=== PATIENT | male | born 1995 | race African-American/Black ===

== ENCOUNTER 2023-03-18 23:32 | Observation (INO) | payer OTHER ==
[2023-03-18 23:37] VITALS: TEMP 98
--- NOTE | 2023-03-18 23:43 | ED ---
Chest Pain HPI - General Chief Complaint: Chest Pain Stated Complaint: Tightness in chest and back Time Seen by Provider: 03/18/23 23:42 Source: patient, RN notes reviewed, old records reviewed Mode of arrival: ambulatory Limitations: no limitations - History of Present Illness Initial Comments: This is a 27-year-old male to the emergency department for evaluation. Patient presents today for evaluation of chest pain 4-5 days of chest pain left-sided chest pain anterior chest pain to his back. Patient woke up the pain and did not elicit when he is going to bed the night before. Patient states his been persistent not going aorta occasional shortness of breath. No trauma no injuries no swelling of travel show sick contacts no fevers. No cough or congestion currently. Patient has no medical history takes no medications MD Complaint: chest pain -: days(s) (5) Onset: during rest, during exertion Pain Location: left chest Severity scale (1-10): 5 Quality: tightness, sharp Consistency: constant Improves With: nothing Worsens With: nothing Anginal Symptoms: dyspnea Other Symptoms: cough Treatments Prior to Arrival: none - Related Data Home Medications Medication Instructions Recorded Confirmed No Known Home Medications 03/19/23 03/19/23 Allergies Allergy/AdvReac Type Severity Reaction Status Date / Time No Known Allergies Allergy Verified 03/19/23 07:22 Review of Systems ROS Statement: Those systems with pertinent positive or pertinent negative responses have been documented in the HPI. ROS Other: All systems not noted in ROS Statement are negative. EKG Findings - EKG Comments: EKG Findings:: EKG is bradycardia 55 QRS 117 QTc 443. Concern for atrial fibrillation - EKG Results: EKG: interpreted by ERMD EKG shows: bradycardia Past Medical History Past Medical History: No Reported History Additional Past Medical History / Comment(s): BACK INJURY History of Any Multi-Drug Resistant Organisms: None Reported Past Surgical History: No Surgical Hx Reported Additional Past Surgical History / Comment(s): HEART SURGERY AN . medical problem - chronic back pain Past Alcohol Use History: Occasional Past Drug Use History: Marijuana General Exam Limitations: no limitations General appearance: alert, in no apparent distress Head exam: Present: atraumatic, normocephalic, normal inspection Eye exam: Present: normal appearance, PERRL, EOMI. Absent: scleral icterus, conjunctival injection, periorbital swelling ENT exam: Present: normal exam, mucous membranes moist Neck exam: Present: normal inspection. Absent: tenderness, meningismus, lymphadenopathy Respiratory exam: Present: normal lung sounds bilaterally. Absent: respiratory distress, wheezes, rales, rhonchi, stridor Cardiovascular Exam: Present: regular rate, normal rhythm, normal heart sounds. Absent: systolic murmur, diastolic murmur, rubs, gallop, clicks GI/Abdominal exam: Present: soft, normal bowel sounds. Absent: distended, tenderness, guarding, rebound, rigid Extremities exam: Present: normal inspection, full ROM, normal capillary refill. Absent: tenderness, pedal edema, joint swelling, calf tenderness Back exam: Present: normal inspection Neurological exam: Present: alert, oriented X3, CN II-XII intact Psychiatric exam: Present: normal affect, normal mood Skin exam: Present: warm, dry, intact, normal color. Absent: rash Course Vital Signs 03/18/23 03/19/23 03/19/23 23:33 00:00 00:14 Temperature 98.0 F Pulse Rate 60 56 L Pulse Rate [ 58 L Loom Checker ] Respiratory 18 19 Rate Blood Pressure 129/70 146/86 O2 Sat by Pulse 98 97 Oximetry 03/19/23 03/19/23 03/19/23 01:00 02:00 05:52 Temperature Pulse Rate 54 L 56 L 53 L Pulse Rate [ Loom Checker ] Respiratory 20 20 18 Rate Blood Pressure 125/77 123/71 126/82 O2 Sat by Pulse 98 98 99 Oximetry 03/19/23 03/19/23 03/19/23 07:16 11:26 14:59 Temperature Pulse Rate 61 51 L 62 Pulse Rate [ Loom Checker ] Respiratory 15 17 15 Rate Blood Pressure 111/68 139/90 O2 Sat by Pulse 96 100 94 L Oximetry 03/19/23 16:42 Temperature Pulse Rate 61 Pulse Rate [ Loom Checker ] Respiratory 15 Rate Blood Pressure 136/85 O2 Sat by Pulse 98 Oximetry - Reevaluation(s) Reevaluation #1: 03/19/23 00:33 Medical records reviewed Reevaluation #2: 03/19/23 00:33 Patient symptoms relatively unchanged Reevaluation #3: Patient informed results and questions answered Studies Chest x-ray interpreted by me is negative for acute disease Reevaluation #4: 03/18/23 23:42 Was pt. sent in by a medical professional or institution ([facility], [facility], urgent care, hospital, or shelter...) When possible be specific @ -no Did you speak to anyone other than the patient for history (EMS, parent, family, police, friend...)? What history was obtained from this source @ -no Did you review nursing and triage notes (agree or disagree)? Why? @ -agree Are old charts reviewed (outside hosp., previous admission, EMS record, old EKG, old radiological studies, urgent care reports/EKG's, shelter records)? Report findings @ -yes Differential Diagnosis (chest pain, altered mental status, abdominal pain women, abdominal pain men, vaginal bleeding, weakness, fever, dyspnea, syncope, headache, dizziness, GI bleed, back pain, seizure, CVA, palpatations, mental health, musculoskeletal)? @ -prior EKG interpreted by me (3pts min.). @ -yes X-rays interpreted by me (1pt min.). @ -yes CT interpreted by me (1pt min.). @ -no U/S interpreted by me (1pt. min.). @ -no What testing was considered but not performed or refused? (CT, X-rays, U/S, lab s)? Why? @ -none What meds were considered but not given or refused? Why? @ -none Did you discuss the management of the patient with other professionals (professionals i.e. [facility], [facility], lab, RT, psych nurse, case management social worker, plumber maintenance, teacher, home school liaison officer, case work aide)? Give summary @ -no Was smoking cessation discussed for >3mins.? @ -no Was critical care preformed (if so, how long)? @ -no Were there social determinants of health that impacted care today? How? (Homelessness, low income, unemployed, alcoholism, drug addiction, transportation, low edu. Level, literacy, decrease access to med. care, skilled nursing, rehab)? @ -none Was there de-escalation of care discussed even if they declined (Discuss DNR or withdrawal of care, Hospice)? DNR status @ -no What co-morbidities impacted this encounter? (DM, HTN, Smoking, COPD, CAD, Cancer, CVA, ARF, Chemo, Hep., AIDS, mental health diagnosis, sleep apnea, morbid obesity)? @ -none Was patient admitted / discharged? Hospital course, mention meds given and route, prescriptions, significant lab abnormalities, going to OR and other pertinent info. @ - 27 male to the emergency department for evaluation of chest pain. Patient found to be bradycardic possible arrhythmia or atrial fibrillation. Patient be admitted for cardiology evaluation management Admitted Undiagnosed new problem with uncertain prognosis? @ -no Drug Therapy requiring intensive monitoring for toxicity (Heparin, Nitro, Insulin, Cardizem)? @ -no Were any procedures done? @ -no Diagnosis/symptom? @ -Bradycardia, dizziness, chest pain Acute, or Chronic, or Acute on Chronic? @ -Acute Uncomplicated (without systemic symptoms) or Complicated (systemic symptoms)? @ -Complicated Side effects of treatment? @ -no Exacerbation, Progression, or Severe Exacerbation? @ -exacerbation Poses a threat to life or bodily function? How? (Chest pain, [place], [place], pneumonia, PE, COPD, DKA, ARF, appy, cholecystitis, CVA, Diverticulitis, Homicidal, Suicidal, threat to staff... and all critical care pts) @ -yes Reevaluation #5: 03/18/23 23:42 Differential Chest Pain: Stable Angina, Unstable Angina, STEMI, NSTEMI Aortic Dissection, Pneumothorax, Musculoskeletal, Esophageal Spasm GERD, Cholecystitis, Pancreatitis, Zoster, this is not meant to be an all-inclusive list. - Consultations Consultation #1: Spoke with sundar who agrees to admit this patient Chest Pain MDM - MDM 27 male in for chest pain, patient be admitted for an bradycardia, possible arrhythmia with bradycardia or underlying atrial fibrillation Disposition Clinical Impression: Chest pain, Atrial fibrillation, New onset atrial fibrillation, Bradycardia Disposition: ADMITTED IP TO THIS HOSP Condition: Good Is patient prescribed a controlled substance at d/c from ED?: No Time of Disposition: 02:20
[2023-03-19] MEDS ORDERED: SODIUM CHLORIDE 0.9% 500 ML 500 ML IV STA (00:31)
[2023-03-19] MEDS ORDERED: KETOROLAC 15 MG/ML 1 ML VIAL IVP STA (00:31)
[2023-03-19 00:50] LABS: Basophils % (A) 0 %; Eosinophils # (A) 0.2 k/uL (0-0.7); Eosinophils % (A) 3 %; HCT 40.5 % (39.0-53.0); HGB 13.4 gm/dL (13.0-17.5); Lymphocytes # (A) 2.5 k/uL (1.0-4.8); Lymphocytes % (A) 38 %; MCHC 33.2 g/dL (31.0-37.0); MCV 93.3 fL (80.0-100.0); Monocytes # (A) 0.4 k/uL (0-1.0); Monocytes % (A) 7 %; Neutrophils # (A) 3.4 k/uL (1.3-7.7); Neutrophils % (A) 51 %; Platelet Count 115 k/uL (150-450); RBC 4.34 m/uL (4.30-5.90); RDW 13.7 % (11.5-15.5); WBC 6.6 k/uL (3.8-10.6)
[2023-03-19 01:01] LABS: ALT 25 U/L (4-49); AST 30 U/L (17-59); African American GFR (CKD) >90 (>60 ml/min/1.73 sqM); Albumin 3.5 g/dL (3.5-5.0); Alkaline Phosphatase 48 U/L (38-126); Anion Gap 4 mmol/L; Blood Urea Nitrogen 16 mg/dL (9-20); Calcium 8.4 mg/dL (8.4-10.2); Carbon Dioxide 25 mmol/L (22-30); Chloride 109 mmol/L (98-107); Glucose 115 mg/dL (74-99); Lipase 106 U/L (23-300); Magnesium 1.9 mg/dL (1.6-2.3); Non-African American GFR(CKD) >90 (>60 ml/min/1.73 sqM); Potassium 3.7 mmol/L (3.5-5.1); Sodium 138 mmol/L (137-145); Total Bilirubin 0.3 mg/dL (0.2-1.3); Total Protein 6.3 g/dL (6.3-8.2)
[2023-03-19 01:10] LABS: NT-Pro-B-Type Natriuretic Pept 34 pg/mL
[2023-03-19 01:15] LABS: INR 1.1 (<1.2); Prothrombin Time 11.3 sec (9.0-12.0)
--- NOTE | 2023-03-19 01:50 | XR ---
EXAM: XR Chest, 2 Views CLINICAL HISTORY: ITS.REASON XR Reason: Chest Pain TECHNIQUE: Frontal and lateral views of the chest. COMPARISON: No relevant prior studies available. FINDINGS: Lungs: No consolidation or mass. Pleural space: No effusion. Heart: No cardiomegaly. Bones/joints: No acute findings. IMPRESSION: No acute cardiopulmonary process.
[2023-03-19] MEDS ORDERED: KETOROLAC 15 MG/ML 1 ML VIAL IVP PRN (02:17)
[2023-03-19] MEDS ORDERED: NALOXONE 0.4 MG/ML 1 ML VIAL IV PRN (02:17)
[2023-03-19] MEDS ORDERED: ONDANSETRON 4 MG/2 ML VIAL IVP PRN (02:17)
[2023-03-19] MEDS ORDERED: ASPIRIN 81 MG PO STA (02:20)
[2023-03-19] MEDS ORDERED: SODIUM CHLORIDE 0.9% 1,000 ML IV SCH (02:30)
--- NOTE | 2023-03-19 05:37 | P.HPIM ---
History of Present Illness H&P Date: 03/19/23 Chief Complaint: Chest pain 27-year-old male with no significant past medical history Patient coming in with 4 day history of chest tightness 5 out of 10 in severity with inability to do his daily activities. 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 He denies any sports related injury or any unusual activity prior to this denies any trauma or falls he denies any fevers or chills denies any coughing or upper respiratory infection symptoms denies any similar symptoms in the past he denies any sudden cardiac in his family. He reports feeling drained no energy and cannot do anything he was supposed to be catering over the weekend and he had to cancel that as the discomfort increases during exertion. He denies any tobacco smoking admits that some marijuana and occasional alcohol review of systems Pertinent positives as noted in HPI. All other systems were reviewed and are negative on exam Constitutional: No acute distress, conversant, pleasant Eyes: Anicteric sclerae, moist conjunctiva, Pupils equal round reactive to light ENMT: NC/AT Oropharynx clear, no erythema, or exudates Neck: Supple, no masses, or JVD No carotid bruits No thyromegaly Lungs: Clear to auscultation Clear to percussion Normal respiratory effort, no accessory muscle use Cardiovascular: Heart irregular in rate and rhythm, No murmurs, gallops, or rubs No peripheral edema Abdominal: Soft Nontender, no guarding, rebound or rigidity Abdomen moving with respiration Normoactive bowel sounds No hepatomegaly, No splenomegaly No palpable mass No abdominal wall hernia noted Skin: Normal temperature, tone, texture, turgor No induration No subcutaneous nodules No rash, lesions No ulcers Extremities: No digital cyanosis No clubbing Pedal pulses intact and symmetrical Radial pulses intact and symmetrical No calf tenderness Psychiatric: Alert and oriented to person, place and time Appropriate affect fair judgement Neuro Muscles Strength 5/5 in all 4 extremities Sensation to light touch grossly present throughout Cranial nerves II-XII grossly intact Lymphatics: no palpable cervical or supraclavicular lymph nodes Past Medical History Past Medical History: No Reported History Additional Past Medical History / Comment(s): BACK INJURY History of Any Multi-Drug Resistant Organisms: None Reported Past Surgical History: No Surgical Hx Reported Additional Past Surgical History / Comment(s): HEART SURGERY AN . medical problem - chronic back pain Past Alcohol Use History: Occasional Past Drug Use History: Marijuana Medications and Allergies Home Medications Medication Instructions Recorded Confirmed Type Marijuana Tablets 1 tab PO DAILY PRN 12/02/14 06/28/15 History HYDROcodone/APAP 5-325MG [[place] 5] 1 each PO Q6HR PRN 06/28/15 06/28/15 History Allergies Allergy/AdvReac Type Severity Reaction Status Date / Time No Known Allergies Allergy Verified 03/18/23 23:37 Physical Exam Vitals: Vital Signs Temp Pulse Pulse Resp BP Pulse Ox 03/19/23 02:00 56 L 20 123/71 98 03/19/23 01:00 54 L 20 125/77 98 03/19/23 00:14 58 L 03/19/23 00:00 56 L 19 146/86 97 03/18/23 23:33 98.0 F 60 18 129/70 98 Intake and Output 03/18/23 03/18/23 03/19/23 14:59 22:59 06:59 Other: Weight 83.915 kg Results CBC & Chem 7: 03/19/23 00:39 03/19/23 00:39 Labs: Abnormal Lab Results - Last 24 Hours (Table) 03/19/23 03/19/23 Range/Units 00:39 00:39 Plt Count 115 L (150-450) k/uL Chloride 109 H (98-107) mmol/L Glucose 115 H (74-99) mg/dL Assessment and Plan Assessment: 27-year-old male with no prescription can past medical history coming in for chest tightness I discussed the case with the ED doctor and I accepted the admission for chest pain with underlying new onset A. fib or cardiac workup stated length of stay more than 2 midnights A. fib with slow ventricular response EKG showing atrial fibrillation with slow ventricular response. With ectopic P waves Troponins negative, proBNP within normal limits TSH 0.746 D-dimer negative Magnesium 1.9, potassium 3.7 both unremarkable Renal function unremarkable Bun16 creatinine 1.0 to Check echocardiogram Cardiology consult zigzag elastic attacher Monitor vital signs White count 6.6 unremarkable hemoglobin 13.4 unremarkable Full code DVT prophylaxis heparin subcu 3 times a day
[2023-03-19] MEDS ORDERED: ASPIRIN 325 MG TAB PO SCH (09:00)
--- NOTE | 2023-03-19 12:42 | P.CRDCN ---
History of Present Illness History of present illness: HISTORY OF PRESENT ILLNESS: This is a 27-year-old male with no significant past medical history. 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 We have been asked to see the patient in consultation for atrial fibrillation. Patient examined at the bedside in the emergency room. There are multiple family members present. The patient states he presented to the hospital for chief complaint of chest pain. He states the pain is on the left side of his chest and goes into his back. He states that yesterday he could not lift up his left arm due to the pain. He states the pain was worse with movement. At the time of examination, he denies chest pain or pressure. 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 EKG was interpreted as atrial fibrillation by the computer. However upon review of EKG there is no evidence of atrial fibrillation. EKG reveals sinus mechanism. * EKG reveals sinus mechanism with no signs of acute ischemia. No evidence of atrial fibrillation. * Chest xray negative for acute process * Laboratory data: WBC 6.6. Hemoglobin 13.4. Platelet count 115. D-dimer 0.32. Sodium 138. Potassium 3.7. BUN 16. Creatinine 1.02. Troponin negative 2. TSH 0.746. * Current home cardiac medications include none REVIEW OF SYSTEMS: At the time of my exam: CONSTITUTIONAL: Denies fever or chills. HEENT: Denies blurred vision, vision changes, or eye pain. Denies hemoptysis CARDIOVASCULAR: Denies chest pain. Denies orthopnea. Denies PND. Denies palpitations RESPIRATORY: Denies shortness of breath. GASTROINTESTINAL: Denies abdominal pain. Denies nausea or vomiting. HEMATOLOGIC: Denies bleeding disorders. GENITOURINARY: Denies any blood in urine. SKIN: Denies pruitis. Denies rash. PHYSICAL EXAM: VITAL SIGNS: Reviewed. GENERAL: Well-developed in no acute distress. HEENT: Head is normocephalic. Pupils are equal, round. Sclerae anicteric. Mucous membranes of the mouth are moist. Neck supple. No JVD or thyromegaly LUNGS: Respirations even and unlabored. Lungs essentially clear to auscultation bilaterally. HEART: Regular rate and rhythm. S1 and S2 heard. ABDOMEN: Soft. Nondistended. Nontender. EXTREMITIES: Normal range of motion. No clubbing or cyanosis. Peripheral pulses intact. No lower extremity edema NEUROLOGIC: Awake and alert. Oriented x 3. ASSESSMENT: Chest pain, troponins negative 2, atypical, reproducible with movement Atrial fibrillation, ruled out, EKG reveals sinus mechanism Marijuana use PLAN: An acute coronary and has been ruled out Patient may be discharged home today from a cardiac standpoint and follow up in the office Will consider outpatient stress testing at that time Recommend abstinence from alcohol and marijuana We will sign off. Please reconsult if needed. Nurse practitioner note has been reviewed by physician. Signing provider agrees with the documented findings, assessment, and plan of care. Past Medical History Past Medical History: No Reported History Additional Past Medical History / Comment(s): BACK INJURY History of Any Multi-Drug Resistant Organisms: None Reported Past Surgical History: No Surgical Hx Reported Additional Past Surgical History / Comment(s): HEART SURGERY AN INFANT. medical problem - chronic back pain Past Alcohol Use History: Occasional Past Drug Use History: Marijuana Medications and Allergies Home Medications Medication Instructions Recorded Confirmed Type No Known Home Medications 03/19/23 03/19/23 History Allergies Allergy/AdvReac Type Severity Reaction Status Date / Time No Known Allergies Allergy Verified 03/19/23 07:22 Physical Exam Vitals: Vital Signs Temp Pulse Pulse Resp BP Pulse Ox 03/19/23 07:16 61 15 111/68 96 03/19/23 05:52 53 L 18 126/82 99 03/19/23 02:00 56 L 20 123/71 98 03/19/23 01:00 54 L 20 125/77 98 03/19/23 00:14 58 L 03/19/23 00:00 56 L 19 146/86 97 03/18/23 23:33 98.0 F 60 18 129/70 98 Intake and Output 03/18/23 03/19/23 03/19/23 22:59 06:59 14:59 Other: Weight 83.915 kg Results 03/19/23 00:39 03/19/23 00:39 Cardiac Enzymes 03/19/23 03/19/23 Range/Units 00:39 00:39 AST 30 (17-59) U/L Troponin I <0.012 (0.000-0.034) ng/mL Coagulation 03/19/23 Range/Units 00:36 PT 11.3 (9.0-12.0) sec APTT 27.0 (22.0-30.0) sec CBC 03/19/23 Range/Units 00:39 WBC 6.6 (3.8-10.6) k/uL RBC 4.34 (4.30-5.90) m/uL Hgb 13.4 (13.0-17.5) gm/dL Hct 40.5 (39.0-53.0) % Plt Count 115 L (150-450) k/uL Comprehensive Metabolic Panel 03/19/23 Range/Units 00:39 Sodium 138 (137-145) mmol/L Potassium 3.7 (3.5-5.1) mmol/L Chloride 109 H (98-107) mmol/L Carbon Dioxide 25 (22-30) mmol/L BUN 16 (9-20) mg/dL Creatinine 1.02 (0.66-1.25) mg/dL Glucose 115 H (74-99) mg/dL Calcium 8.4 (8.4-10.2) mg/dL AST 30 (17-59) U/L ALT 25 (4-49) U/L Alkaline Phosphatase 48 (38-126) U/L Total Protein 6.3 (6.3-8.2) g/dL Albumin 3.5 (3.5-5.0) g/dL Current Medications Generic Name Dose Route Start Last Admin Trade Name Freq PRN Reason Stop Dose Admin Aspirin 325 mg 03/19/23 09:00 03/19/23 10:04 Aspirin 325 Mg Tab PO 325 mg DAILY BEBA Administration Sodium Chloride 1,000 mls @ 130 mls/hr 03/19/23 02:30 03/19/23 02:51 Saline 0.9% IV 130 mls/hr .[id number] BEBA Administration Ketorolac Tromethamine 15 mg 03/19/23 02:17 03/19/23 06:28 Ketorolac 15 Mg/Ml 1 Ml Vial IVP 03/22/23 02:18 15 mg Q6HR PRN Administration Moderate Pain (Scale 4 to 6) Naloxone HCl 0.2 mg 03/19/23 02:17 Naloxone 0.4 Mg/Ml 1 Ml Vial IV Q2M PRN Opioid Reversal Ondansetron HCl 4 mg 03/19/23 02:17 Ondansetron 4 Mg/2 Ml Vial IVP Q8HR PRN Nausea And Vomiting Intake and Output 03/18/23 03/19/23 03/19/23 22:59 06:59 14:59 Other: Weight 83.915 kg 03/19/23 00:39 03/19/23 00:39
[2023-03-19 15:00] VITALS: RESP 15
--- NOTE | 2023-03-19 16:39 | P.DS ---
Providers Date of admission: 03/19/23 02:17 Expected date of discharge: 03/19/23 Attending physician: Kristi Santiago MD Primary care physician: Stated None Hospital Course: Chest pain, noncardiac Sinus bradycardia with frequent PACs 27-year-old man with a history of PFO as a child presented for chest pain. Patient said he did a lot of heavy lifting at work and felt like he had musculoskeletal pain, however, is in the hospital a concern that it may not be purely muscular skeletal nature. In the emergency room, patient was noted to be afebrile, 111/68, heart rate 61, 96% on room air. CBC showed thrombocytopenia to 115, otherwise unremarkable. Basic metabolic panel is unremarkable. Liver function tests are unremarkable. TSH was 0.746. Troponins less than 0.012. Repeat troponin is less than 0.012. Coags were unremarkable. D-dimer was 0.32. Lipase was 106. BNP was 34. EKG shows sinus bradycardia with frequent PACs. Case is discussed with emergency room provider incision was made to admit the patient to observation given bradycardia. Patient's mother noted the patient developed down into the 30s several times while sleeping, but remained asymptomatic. He was seen by cardiology and cleared from their perspective. We did order an echocardiogram to rule out structural heart disease, patient was discharged prior to the results, but will be notified of the result after the echo is read. He'll follow up with primary care physician as well as cardiology on discharge. Gen: awake, alert HEENT: normocephalic, atraumatic, good hearing acuity, moist mucous membranes Resp: good air exchange, breathing comfortably with no accessory muscle use CVS: good distal perfusion x 4, GI: soft, NTTP, ND : no SPT, no CVAT, rivas catheter not present MSK: no pitting edema, no clubbing Neuro: non-focal, moving all extremities Psych: cooperative, euthymic mood Patient Condition at Discharge: Good Plan - Discharge Summary New Discharge Prescriptions: No Action No Known Home Medications Discharge Medication List No Known Home Medications 03/19/23 [History] Follow up Appointment(s)/Referral(s): Jaelyn Mccollum MD [STAFF PHYSICIAN] - 1 Week (Office will call you with an appointment. ) None,Stated [Primary Care Provider] - 1-2 days Discharge Disposition: HOME SELF-CARE
[2023-03-19 16:45] VITALS: BP 136/85; PULSE 61
--- NOTE | 2023-03-19 17:42 | CA ---
Transthoracic Echo Report Name: Peng Aldana Age: 27 Gender: M : 1995 Exam Date: 03/19/2023 14:25 Exam Location: [facility] Ht (in): 70 Wt (lb): 185 Ordering Physician: Mary Torres MD Attending/Referring Phys: Membership Manager Jaziel Guevara Procedure CPT: Indications: PFO, history of Cardiac Hx: Technical Quality: Good Contrast 1: Total Dose (mL): Contrast 2: Total Dose (mL): MEASUREMENTS (Male / Female) Normal Values 2D ECHO LV Diastolic Diameter PLAX 3.2 cm 4.2 - 5.9 / 3.9 - 5.3 cm LV Systolic Diameter PLAX 3.5 cm IVS Diastolic Thickness 1.3 cm 0.6 - 1.0 / 0.6 - 0.9 cm LVPW Diastolic Thickness 3.1 cm 0.6 - 1.0 / 0.6 - 0.9 cm LV Relative Wall Thickness 1.4 RV Internal Dim ED PLAX 2.8 cm LVOT Diameter 2.0 cm Aortic Root Diameter 2.9 cm LA Systolic Diameter LX 2.9 cm 3.0 - 4.0 / 2.7 - 3.8 cm LV Diastolic Volume MOD BP 92.3 cm??? 67 - 155 / 56 - 104 cm??? LV Systolic Volume MOD BP 33.8 cm??? - 58 / 19 - 49 cm??? LV Ejection Fraction MOD BP 63.4 % >= 55 % LV Cardiac Index MOD BP 1570.8 cm???/min???m??? LV Diastolic Volume MOD 4C 72.6 cm??? LV Systolic Volume MOD 4C 38.3 cm??? LV Ejection Fraction MOD 4C 47.2 % LV Cardiac Index MOD 4C 918.8 cm???/min???m??? LV Diastolic Length 4C 8.2 cm LV Systolic Length 4C 7.4 cm LV Diastolic Volume MOD 2C 110.0 cm??? LV Systolic Volume MOD 2C 30.3 cm??? LV Ejection Fraction MOD 2C 72.5 % LV Cardiac Index MOD 2C 2141.1 cm???/min???m??? LV Diastolic Length 2C 8.8 cm LV Systolic Length 2C 7.4 cm LA Volume 60.0 cm??? 18 - 58 / 22 - 52 cm??? Ascending Aorta Diameter 2.5 cm DOPPLER AV Peak Velocity 163.3 cm/s AV Peak Gradient 10.7 mmHg LVOT Peak Velocity 100.3 cm/s LVOT Peak Gradient 4.0 mmHg AV Area Cont Eq pk 2.0 cm??? MV Peak Velocity 119.4 cm/s MV Peak Gradient 5.7 mmHg MV Mean Velocity 52.9 cm/s MV Mean Gradient 1.5 mmHg MV Velocity Time Integral 44.7 cm MR Peak Velocity 328.9 cm/s MR Peak Gradient 43.3 mmHg Mitral E Point Velocity 89.6 cm/s Mitral A Point Velocity 42.7 cm/s Mitral E to A Ratio 2.1 MV Deceleration Time 245.4 ms MV E' Velocity 10.9 cm/s Mitral E to MV E' Ratio 8.2 TR Peak Velocity 271.5 cm/s TR Peak Gradient 29.5 mmHg Right Ventricular Systolic Press 34.5 mmHg PV Peak Velocity 119.8 cm/s PV Peak Gradient 5.7 mmHg FINDINGS Left Ventricle Normal LV size . Left ventricular ejection fraction is estimated at 55-60 %. Mildly increased left ventricular wall thickness. Normal left ventricular wall motion. Normal left ventricular diastolic filling pattern. Right Ventricle Normal right ventricular size. RVSP= 34mmhg. Right Atrium Normal right atrial size. Left Atrium Normal left atrial size. Mitral Valve Structurally normal mitral valve. Mild MR. Aortic Valve Trileaflet aortic valve. No aortic valve stenosis or regurgitation. Tricuspid Valve Structurally normal tricuspid valve. Mild TR. Pulmonic Valve Structurally normal pulmonic valve. Trace pulmonic regurgitation. Pericardium Normal pericardium. Aorta Normal size aortic root and proximal ascending aorta. CONCLUSIONS 1. Normal left ventricular size and systolic function 2. Mild mitral and tricuspid regurgitation with normal right ventricular systolic pressure Previewed by: Dr. Parviz Bunn MD (Electronically Signed) Final Date: 19 March 2023 17:41
== END 2023-03-19 18:16 | disposition home or self-care (01) ==
LOC: EC 23:32 → 3SCARD 03-19 02:17 → 6NMEDSUR 03-19 15:59
PROVIDERS: ADMIT Internal Medicine; ATTEND Internal Medicine
DX: R07.89 Other chest pain (principal); I48.91 Unspecified atrial fibrillation; R00.1 Bradycardia, unspecified; Q21.12 Patent foramen ovale; D69.6 Thrombocytopenia, unspecified; G89.29 Other chronic pain; M54.9 Dorsalgia, unspecified
CPT/HCPCS: 96376; 96361; 96374; 99285; 36415; 93005 ×2; 93306; 85379; 83880; 80053; 84443; 83690; 83735; 84484; 85025; 85610; 85730; 71046; G0378 ×2; J1885

== ENCOUNTER 2024-11-26 19:58 | Emergency (ER) | payer SELFPAY ==
[2024-11-26 21:48] LABS: Basophils % (A) 1 %; Eosinophils # (A) 0.4 k/uL (0-0.7); Eosinophils % (A) 6 %; HCT 43.2 % (39.0-53.0); HGB 13.8 gm/dL (13.0-17.5); Lymphocytes # (A) 2.4 k/uL (1.0-4.8); Lymphocytes % (A) 33 %; MCHC 31.9 g/dL (31.0-37.0); Mean Platelet Volume 9.7; Monocytes # (A) 0.3 k/uL (0-1.0); Monocytes % (A) 5 %; Neutrophils # (A) 3.8 k/uL (1.3-7.7); Neutrophils % (A) 54 %; Platelet Count 138 k/uL (150-450); RBC 4.59 m/uL (4.30-5.90); RDW 14.2 % (11.5-15.5); WBC 7.1 k/uL (3.8-10.6)
[2024-11-26 21:51] LABS: ALT 51 U/L (4-49); AST 61 U/L (17-59); African American GFR (CKD) >90 (>60 ml/min/1.73 sqM); Albumin 3.2 g/dL (3.5-5.0); Alkaline Phosphatase 42 U/L (38-126); Anion Gap 4 mmol/L; Blood Urea Nitrogen 16 mg/dL (9-20); Calcium 9.2 mg/dL (8.4-10.2); Carbon Dioxide 29 mmol/L (22-30); Chloride 106 mmol/L (98-107); Glucose 97 mg/dL (74-99); Magnesium 1.9 mg/dL (1.6-2.3); Non-African American GFR(CKD) >90 (>60 ml/min/1.73 sqM); Sodium 139 mmol/L (137-145); Total Bilirubin 0.3 mg/dL (0.2-1.3); Total Protein 5.5 g/dL (6.3-8.2)
[2024-11-26 21:59] LABS: NT-Pro-B-Type Natriuretic Pept 25 pg/mL
--- NOTE | 2024-11-26 22:05 | US ---
EXAMINATION TYPE: US venous doppler duplex LE BI DATE OF EXAM: 11/26/2024 9:22 PM COMPARISON: NONE CLINICAL INDICATION: Male, 29 years old with history of swelling; edema, Pain TECHNIQUE: The lower extremity deep venous system is examined utilizing real time linear array sonog razia with graded compression, color doppler sonography, and spectral doppler. SIDE PERFORMED: Bilateral FINDINGS: VESSELS IMAGED: Common Femoral Vein Deep Femoral Vein Greater Saphenous Vein * Femoral Vein Popliteal Vein Small Saphenous Vein * Proximal Calf Veins (* superficial vessels) Right Leg: Negative for DVT, Color Doppler imaging shows patency of the vessels. Spectral waveforms are within normal limits. Left Leg: Negative for DVT, Color Doppler imaging shows patency of the vessels. Spectral waveforms a re within normal limits. IMPRESSION: Bilateral lower extremity ultrasound negative for deep venous thrombosis. [facility], , 11/26/2024 10:02 PM
[2024-11-26 22:33] LABS: Amorphous Sediment,Urine Rare /hpf; Appearance,Urine Cloudy (Clear); Bilirubin,Urine Negative (Negative); Blood,Urine Negative (Negative); Budding Yeast,Urine Many /hpf; Calcium Oxalate Crystals,Urine Occasional /hpf; Color,Urine Yellow; Glucose,Urine (UA) Negative (Negative); Ketones,Urine Negative (Negative); Leukocyte Esterase,Urine Negative (Negative); Mucus,Urine Rare /hpf; Nitrite,Urine Negative (Negative); PH, Urine 7.5 (5.0-8.0); Protein,Urine Trace (Negative); RBC,Urine 1 /hpf (0-5); Specific Gravity,Urine 1.026 (1.001-1.035); WBC,Urine 1 /hpf (0-5)
--- NOTE | 2024-11-26 22:55 | ED ---
Extremity Problem HPI - General Chief complaint: Extremity Problem,Nontraumatic Stated complaint: Swollen Ankles Time Seen by Provider: 11/26/24 20:04 Source: patient Mode of arrival: ambulatory Limitations: no limitations - History of Present Illness Initial comments: 29-year-old male presenting with chief complaint of swelling to the bilateral ankles. Patient states that he only noticed this today. He is having some tenderness to the ankles as well. No difficulty breathing or chest pain. No injury or trauma. No nausea vomiting or abdominal pain. No recent illness. No fevers or chills. No calf tenderness. No numbness or tingling. He denies any alcohol use. - Related Data Home Medications Medication Instructions Recorded Confirmed No Known Home Medications 03/19/23 03/19/23 Allergies Allergy/AdvReac Type Severity Reaction Status Date / Time No Known Allergies Allergy Verified 11/26/24 20:01 Review of Systems ROS Statement: Those systems with pertinent positive or pertinent negative responses have been documented in the HPI. ROS Other: All systems not noted in ROS Statement are negative. Past Medical History Past Medical History: No Reported History Additional Past Medical History / Comment(s): BACK INJURY History of Any Multi-Drug Resistant Organisms: None Reported Past Surgical History: No Surgical Hx Reported Additional Past Surgical History / Comment(s): HEART SURGERY AN INFANT. medical problem - chronic back pain Past Psychological History: Anxiety, Depression Smoking Status: Current every day smoker Past Alcohol Use History: Occasional Past Drug Use History: Marijuana General Exam Limitations: no limitations General appearance: alert, in no apparent distress Head exam: Present: atraumatic, normocephalic, normal inspection Eye exam: Present: normal appearance, EOMI Neck exam: Present: normal inspection. Absent: meningismus Respiratory exam: Present: normal lung sounds bilaterally. Absent: respiratory distress, wheezes, rales, rhonchi, stridor Cardiovascular Exam: Present: regular rate, normal rhythm, normal heart sounds. Absent: systolic murmur, diastolic murmur, rubs, gallop, clicks Extremities exam: Present: pedal edema (Patient does have some swelling to the feet and ankles) Neurological exam: Present: alert, oriented X3 Psychiatric exam: Present: normal affect, normal mood Skin exam: Present: warm, dry, normal color Course Vital Signs 11/26/24 11/26/24 19:59 23:02 Temperature 97.9 F 98.2 F Pulse Rate 70 69 Respiratory 18 19 Rate Blood Pressure 149/78 142/77 O2 Sat by Pulse 98 98 Oximetry Medical Decision Making - Medical Decision Making Was pt. sent in by a medical professional or institution ([facility], TOY MAKER, urgent care, hospital, or longterm...) When possible be specific @ -No Did you speak to anyone other than the patient for history (EMS, parent, family, police, friend...)? What history was obtained from this source @ -No Did you review nursing and triage notes (agree or disagree)? Why? @ -I reviewed and agree with nursing and triage notes Were old charts reviewed (outside hosp., previous admission, EMS record, old EKG, old radiological studies, urgent care reports/EKG's, longterm records)? Report findings @ -No old charts were reviewed Differential Diagnosis (chest pain, altered mental status, abdominal pain women, abdominal pain men, vaginal bleeding, weakness, fever, dyspnea, syncope, headache, dizziness, GI bleed, back pain, seizure, CVA, palpatations, mental health, musculoskeletal)? @ -Differential includes CHF, DVT, liver disease, renal disease, fluid retention, not an all-inclusive list EKG interpreted by me (3pts min.). @ -As above X-rays interpreted by me (1pt min.). @ -None done CT interpreted by me (1pt min.). @ -None done U/S interpreted by me (1pt. min.). @ -Ultrasound negative for DVT What testing was considered but not performed or refused? (CT, X-rays, U/S, labs)? Why? @ -None What meds were considered but not given or refused? Why? @ -None Did you discuss the management of the patient with other professionals (professionals i.e. ELI [facility], TOY MAKER, lab, RT, psych nurse, socially responsible investment adviser, facilities supervisor, teacher, civil preparedness officer, correctional casework specialist)? Give summary @ -No Was smoking cessation discussed for >3mins.? @ -No Was critical care preformed (if so, how long)? @ -No Were there social determinants of health that impacted care today? How? (Homelessness, low income, unemployed, alcoholism, drug addiction, transportation, low edu. Level, literacy, decrease access to med. care, fci, rehab)? @ -No Was there de-escalation of care discussed even if they declined (Discuss DNR or withdrawal of care, Hospice)? DNR status @ -No What co-morbidities impacted this encounter? (DM, HTN, Smoking, COPD, CAD, Cancer, CVA, ARF, Chemo, Hep., AIDS, mental health diagnosis, sleep apnea, morbid obesity)? @ -None Was patient admitted / discharged? Hospital course, mention meds given and route, prescriptions, significant lab abnormalities, going to OR and other pertinent info. @ -29-year-old male presenting with chief complaint of swelling and tenderness to the bilateral ankles with no injury or trauma. No chest pain or difficulty breathing. History and physical examination are conducted. Lab work shows no leukocytosis or anemia. GFR is greater than 90. Patient does have some mild transaminitis. BNP is only 25. Ultrasound negative for DVT. He does have trace protein in the urine. On reassessment patient is resting comfortably showing no acute signs of distress. He is educated on today's findings. Patient does not follow with a PCP, he is given suggestions and instructed that he needs to follow-up with 1. He is given education on supportive management for the lower extremity swelling including decrease sodium in the diet, elevating his feet, compression socks, etc. Follow-up with PCP. Report back to ER with any new or worsening symptoms. Discussed return parameters and answered all questions. Patient conveyed verbal understanding and agreed to the plan. I discussed this case in detail with my attending Dr. Felix Undiagnosed new problem with uncertain prognosis? @ -No Drug Therapy requiring intensive monitoring for toxicity (Heparin, Nitro, Insulin, Cardizem)? @ -No Were any procedures done? @ -No Diagnosis/symptom? @ -Lower extremity swelling Acute, or Chronic, or Acute on Chronic? @ -Acute Uncomplicated (without systemic symptoms) or Complicated (systemic symptoms)? @ -Uncomplicated Side effects of treatment? @ -No Exacerbation, Progression, or Severe Exacerbation? @ -No Poses a threat to life or bodily function? How? (Chest pain, [place], [place], pneumonia, PE, COPD, DKA, ARF, appy, cholecystitis, CVA, Diverticulitis, Homicidal, Suicidal, threat to staff... and all critical care pts) @ -Low likelihood - Lab Data Result diagrams: 11/26/24:14 11/26/24 21:14 Lab Results 11/26/24 11/26/24 11/26/24 Range/Units 21:14 21:14 21:14 WBC 7.1 (3.8-10.6) k/uL RBC 4.59 (4.30-5.90) m/uL Hgb 13.8 (13.0-17.5) gm/dL Hct 43.2 (39.0-53.0) % MCV 94.0 (80.0-100.0) fL MCH 30.0 (25.0-35.0) pg MCHC 31.9 (31.0-37.0) g/dL RDW 14.2 (11.5-15.5) % Plt Count 138 L (150-450) k/uL MPV 9.7 Neutrophils % 54 % Lymphocytes % 33 % Monocytes % 5 % Eosinophils % 6 % Basophils % 1 % Neutrophils # 3.8 (1.3-7.7) k/uL Lymphocytes # 2.4 (1.0-4.8) k/uL Monocytes # 0.3 (0-1.0) k/uL Eosinophils # 0.4 (0-0.7) k/uL Basophils # 0.0 (0-0.2) k/uL Sodium 139 (137-145) mmol/L Potassium 4.0 (3.5-5.1) mmol/L Chloride 106 (98-107) mmol/L Carbon Dioxide 29 (22-30) mmol/L Anion Gap 4 mmol/L BUN 16 (9-20) mg/dL Creatinine 0.96 (0.66-1.25) mg/dL Est GFR (CKD-EPI)AfAm >90 (>60 ml/min/1.73 sqM) Est GFR (CKD-EPI)NonAf >90 (>60 ml/min/1.73 sqM) Glucose 97 (74-99) mg/dL Calcium 9.2 (8.4-10.2) mg/dL Magnesium 1.9 (1.6-2.3) mg/dL Total Bilirubin 0.3 (0.2-1.3) mg/dL AST 61 H (17-59) U/L ALT 51 H (4-49) U/L Alkaline Phosphatase 42 (38-126) U/L NT-Pro-B Natriuret Pep 25 pg/mL Total Protein 5.5 L (6.3-8.2) g/dL Albumin 3.2 L (3.5-5.0) g/dL Urine Color Yellow Urine Appearance Cloudy (Clear) Urine pH 7.5 (5.0-8.0) Ur Specific [place] 1.026 (1.001-1.035) Urine Protein Trace H (Negative) Urine Glucose (UA) Negative (Negative) Urine Ketones Negative (Negative) Urine Blood Negative (Negative) Urine Nitrite Negative (Negative) Urine Bilirubin Negative (Negative) Urine Urobilinogen 2.0 (<2.0) mg/dL Ur Leukocyte Esterase Negative (Negative) Urine RBC 1 (0-5) /hpf Urine WBC 1 (0-5) /hpf Calcium Oxalate Crystal Occasional H (None) /hpf Amorphous Sediment Rare H (None) /hpf Urine Mucus Rare H (None) /hpf Urine Yeast (Budding) Many H (None) /hpf Disposition Clinical Impression: Leg edema Disposition: HOME SELF-CARE Condition: Good Instructions (If sedation given, give patient instructions): Leg Edema (ED) Additional Instructions: Follow-up with PCP. Report back to ER with any new or worsening symptoms. Is patient prescribed a controlled substance at d/c from ED?: No Referrals: None,Stated [Primary Care Provider] - 1-2 days Forms: [facility] PCPs Time of Disposition: 22:55
[2024-11-26 23:07] VITALS: BP 142/77; PULSE 69; RESP 19; TEMP 98.2
== END 2024-11-26 23:12 | disposition home or self-care (01) ==
LOC: EC 19:58
DX: R60.0 Localized edema (principal); M25.472 Effusion, left ankle; M25.471 Effusion, right ankle; F17.200 Nicotine dependence, unspecified, uncomplicated
CPT/HCPCS: 36415; 80053; 81001; 83735; 83880; 85025; 93970; 99284

== ENCOUNTER 2024-11-28 23:39 | Emergency (ER) | payer OTHER ==
[2024-11-29] MEDS: ASPIRIN 81 MG PO STA (00:20)
[2024-11-29 00:21] LABS: Basophils # (A) 0.04 10*3/uL (0.00-0.10); Basophils % (A) 0.6 %; Eosinophils # (A) 0.31 10*3/uL (0.04-0.35); HCT 40.2 % (39.6-50.0); HGB 13.8 g/dL (13.0-17.0); Lymphocytes # (A) 2.77 10*3/uL (0.90-5.00); Lymphocytes % (A) 44.2 %; MCH 30.9 pg (27.0-32.0); MCHC 34.3 g/dL (32.0-37.0); MCV 89.9 fL (80.0-97.0); Mean Platelet Volume 12.9 fL (9.5-12.2); Monocytes # (A) 0.43 10*3/uL (0.20-1.00); Monocytes % (A) 6.9 %; Neutrophils % (A) 43.1 %; Platelet Count 149 10*3/uL (140-440); RBC 4.47 10*6/uL (4.40-5.60); RDW 14.1 % (11.5-14.5); WBC 6.26 10*3/uL (4.50-10.00)
[2024-11-29 00:42] LABS: Partial Thromboplastin Time 25.2 sec (22.0-30.0); Prothrombin Time 10.9 sec (10.0-12.5)
[2024-11-29 00:46] LABS: ALT 54 U/L (4-49); African American GFR (CKD) >90 (>60 ml/min/1.73 sqM); Anion Gap 5 mmol/L; Blood Urea Nitrogen 15 mg/dL (9-20); Carbon Dioxide 24 mmol/L (22-30); Chloride 106 mmol/L (98-107); Glucose 104 mg/dL (74-99); Non-African American GFR(CKD) >90 (>60 ml/min/1.73 sqM); Sodium 135 mmol/L (137-145); Total Bilirubin 0.8 mg/dL (0.2-1.3)
--- NOTE | 2024-11-29 00:48 | ED ---
Chest Pain HPI - General Chief Complaint: Chest Pain Stated Complaint: chest pain, swelling in limbs Time Seen by Provider: 11/28/24 23:49 Source: patient, RN notes reviewed Mode of arrival: wheelchair Limitations: no limitations - History of Present Illness Initial Comments: This is a 29-year-old male presenting with chest pain x 2 days. Patient states symptoms started with swollen ankles x 3 days ago, being seen in the ER at that time with no discovery of DVT or known cause for edema. States swelling has worsened significantly since that time with associated shortness of breath. States chest pain is localized to the left anterior chest and is intermittent, occurring for about 3 minutes every hour without radiating pain. Endorses recent car trip from [place] 1 week ago with very few stops during the trip. Denies significant cardiac history or known history of blood clots. Denies fever, chills, radiating pain, diaphoresis, presyncope, cough, hemoptysis. MD Complaint: chest pain Onset/Timin -: days(s) Onset: during rest Pain Location: left chest Pain Radiation: none Severity: moderate Quality: sharp Consistency: intermittent Improves With: nothing Worsens With: inspiration Context: recent travel [place] Symptoms: dyspnea Treatments Prior to Arrival: none - Related Data Previous Rx's Medication Instructions Recorded Furosemide [Lasix] 40 mg PO DAILY #3 tablet 11/29/24 Allergies Allergy/AdvReac Type Severity Reaction Status Date / Time No Known Allergies Allergy Verified 11/28/24 23:46 Review of Systems ROS Statement: Those systems with pertinent positive or pertinent negative responses have been documented in the HPI. ROS Other: All systems not noted in ROS Statement are negative. Past Medical History Past Medical History: No Reported History Additional Past Medical History / Comment(s): BACK INJURY History of Any Multi-Drug Resistant Organisms: None Reported Past Surgical History: No Surgical Hx Reported Additional Past Surgical History / Comment(s): HEART SURGERY AN . medical problem - chronic back pain Past Psychological History: Anxiety, Depression Smoking Status: Former smoker Past Alcohol Use History: Occasional Past Drug Use History: Marijuana General Exam Limitations: no limitations General appearance: alert, in no apparent distress Head exam: Present: atraumatic, normocephalic, normal inspection Eye exam: Present: normal appearance, PERRL, EOMI. Absent: scleral icterus, conjunctival injection, periorbital swelling ENT exam: Present: normal exam, mucous membranes moist Neck exam: Present: normal inspection. Absent: tenderness, meningismus, lymphadenopathy Respiratory exam: Present: normal lung sounds bilaterally, decreased breath sounds. Absent: respiratory distress, wheezes, rales, rhonchi, stridor, accessory muscle use, prolonged expiratory Cardiovascular Exam: Present: regular rate, normal rhythm, normal heart sounds. Absent: systolic murmur, diastolic murmur, rubs, gallop, clicks GI/Abdominal exam: Present: soft, normal bowel sounds. Absent: distended, tenderness, guarding, rebound, rigid Extremities exam: Present: full ROM, normal capillary refill, pedal edema (Positive BLE pitting edema extending to knees), calf tenderness (Positive BL Homans sign), other (BL neurovascular intact. BL dorsalis pedis pulse +2). Absent: tenderness, joint swelling Back exam: Present: normal inspection Neurological exam: Present: alert, oriented X3, CN II-XII intact Psychiatric exam: Present: normal affect, normal mood Skin exam: Present: warm, dry, intact, normal color. Absent: rash Course Vital Signs 11/28/24 11/28/24 11/29/24 23:41 23:51 02:26 Temperature 97.7 F 98.4 F Pulse Rate 63 56 L 65 Pulse Rate [ 58 L Bilateral Supine Director Print] Respiratory 18 20 18 Rate Blood Pressure 128/70 141/71 129/71 O2 Sat by Pulse 98 98 97 Oximetry Chest Pain MDM - MDM Was pt. sent in by a medical professional or institution (, [facility], CRYPTOZOOLOGIST, urgent care, hospital, or shelter...) When possible be specific @ -[No] Did you speak to anyone other than the patient for history (EMS, parent, family, police, friend...)? What history was obtained from this source @ -[No] Did you review nursing and triage notes (agree or disagree)? Why? @ -[I reviewed and agree with nursing and triage notes] Were old charts reviewed (outside hosp., previous admission, EMS record, old EKG, old radiological studies, urgent care reports/EKG's, shelter records)? Report findings @ -ER visit from 11/26/2024 reviewed revealing no evidence of DVT, blood clot from prior BLE edema. Echo doppler report from 02/2023 showed LVH with LVEF 55-60%. Differential Diagnosis (chest pain, altered mental status, abdominal pain women, abdominal pain men, vaginal bleeding, weakness, fever, dyspnea, syncope, headache, dizziness, GI bleed, back pain, seizure, CVA, palpatations, mental health, musculoskeletal)? @ -Differential Chest Pain: Stable Angina, Unstable Angina, STEMI, NSTEMI Aortic Dissection, Pneumothorax, Musculoskeletal, Esophageal Spasm GERD, Cholecystitis, Pancreatitis, Zoster, this is not meant to be an all-inclusive list. EKG interpreted by me (3pts min.). @ -Sinus bradycardia with PAC and RBBB. No ST deviation or T wave inversion. Ventricular rate 59 bpm, MELODIE 145 ms, QRS 101 ms, QTc 448 ms. X-rays interpreted by me (1pt min.). @ -[None done] CT interpreted by me (1pt min.). @ -[None done] U/S interpreted by me (1pt. min.). @ -[None done] What testing was considered but not performed or refused? (CT, X-rays, U/S, labs)? Why? @ -[None] What meds were considered but not given or refused? Why? @ -[None] Did you discuss the management of the patient with other professionals (professionals i.e. , PA, CRYPTOZOOLOGIST, lab, RT, psych nurse, social services aide, jailer/training officer, teacher, artillery officer, field nurse case manager)? Give summary @ -[No] Was smoking cessation discussed for >3mins.? @ -[No] Was critical care preformed (if so, how long)? @ -[No] Were there social determinants of health that impacted care today? How? (Homelessness, low income, unemployed, alcoholism, drug addiction, transportation, low edu. Level, literacy, decrease access to med. care, fci, rehab)? @ -[No] Was there de-escalation of care discussed even if they declined (Discuss DNR or withdrawal of care, Hospice)? DNR status @ -[No] What co-morbidities impacted this encounter? (DM, HTN, Smoking, COPD, CAD, Cancer, CVA, ARF, Chemo, Hep., AIDS, mental health diagnosis, sleep apnea, morbid obesity)? @ -[None] Was patient admitted / discharged? Hospital course, mention meds given and route, prescriptions, significant lab abnormalities, going to OR and other pertinent info. @ -[hospital course] Undiagnosed new problem with uncertain prognosis? @ -[No] Drug Therapy requiring intensive monitoring for toxicity (Heparin, Nitro, Insulin, Cardizem)? @ -[No] Were any procedures done? @ -[No] Diagnosis/symptom? @ -[default] Acute, or Chronic, or Acute on Chronic? @ -Acute Uncomplicated (without systemic symptoms) or Complicated (systemic symptoms)? @ -Uncomplicated Side effects of treatment? @ -[No] Exacerbation, Progression, or Severe Exacerbation? @ -Progression Poses a threat to life or bodily function? How? (Chest pain, [place], [place], pneumonia, PE, COPD, DKA, ARF, appy, cholecystitis, CVA, Diverticulitis, Homicidal, Suicidal, threat to staff... and all critical care pts) @ -[No] Disposition Clinical Impression: Bilateral lower extremity edema, Chest pain Disposition: HOME SELF-CARE Condition: Good Instructions (If sedation given, give patient instructions): Chest Pain (ED), Leg Edema (ED) Additional Instructions: Elevate legs and compression stocking for swelling. Follow up with cardiology in the next 24-48 hours. Prescriptions: Furosemide [Lasix] 40 mg PO DAILY #3 tablet Is patient prescribed a controlled substance at d/c from ED?: No Referrals: None,Stated [Primary Care Provider] - 1-2 days Jessica Mariee MD [STAFF PHYSICIAN] - 1-2 days Alec Hurst DO [STAFF PHYSICIAN] - 1-2 days Time of Disposition: 02:10
[2024-11-29 00:51] LABS: AST 58 U/L (17-59); Albumin 3.6 g/dL (3.5-5.0); Alkaline Phosphatase 40 U/L (38-126); Magnesium 1.9 mg/dL (1.6-2.3); Potassium 4.4 mmol/L (3.5-5.1); Total Protein 5.9 g/dL (6.3-8.2)
[2024-11-29 00:53] LABS: NT-Pro-B-Type Natriuretic Pept 37 pg/mL
--- NOTE | 2024-11-29 01:21 | US ---
Exam: US VENOUS BILATERAL LOWER EXTREMITIES COMPARISON: 11/26/2024 CLINICAL INDICATION: Male, 29 years old with history of BLE pitting edema; patient states swelling at ankles for few days and chest pain. no pain in legs. no hx dvt. not on thinners, Pain TECHNIQUE: The lower extremity deep venous system is examined utilizing real time linear array sonography with graded compression, color doppler sonography, and spectral doppler. SIDE PERFORMED: Bilateral FINDINGS: VESSELS IMAGED: Common Femoral Vein Deep Femoral Vein Greater Saphenous Vein * Femoral Vein Popliteal Vein Small Saphenous Vein * Proximal Calf Veins (* superficial vessels) Right Leg: Negative for DVT, Color Doppler imaging shows patency of the vessels. Spectral waveforms are within normal limits. Left Leg: Negative for DVT, Color Doppler imaging shows patency of the vessels. Spectral waveforms are within normal limits. There are multiple lymph nodes within bilateral groins, largest measuring 1.4cm on the right and 1.5cm on the left, nonspecific. Impression: No DVT.
--- NOTE | 2024-11-29 01:43 | XR ---
EXAM: XR Chest, 2 Views CLINICAL HISTORY: Chest Pain TECHNIQUE: Frontal and lateral views of the chest. COMPARISON: 03/19/2023 FINDINGS: Lungs: Unremarkable. No consolidation. Pleural space: Unremarkable. Mediastinum: Unremarkable. Normal mediastinal contour. Bones/joints: No acute findings. IMPRESSION: No acute findings.
[2024-11-29] MEDS: FUROSEMIDE 10 MG/ML 4 ML VIAL IV STA (02:24)
[2024-11-29 02:28] VITALS: BP 129/71; PULSE 65; RESP 18; TEMP 98.4
== END 2024-11-29 02:38 | disposition home or self-care (01) ==
LOC: EC 23:39
DX: R07.9 Chest pain, unspecified (principal); R22.43 Localized swelling, mass and lump, lower limb, bilateral; Z87.891 Personal history of nicotine dependence
CPT/HCPCS: 36415; 93005; 85379; 83880; 80053; 83735; 84484; 85025; 85610; 85730; 71046; 93970; 99285; 96374; J1940